=== PATIENT | male | born 2000 | race Caucasian/White ===

== ENCOUNTER 2020-10-30 20:47 | Emergency (ER) | payer OTHER, SELFPAY ==
[~2020-10-30] VITALS: Ht 182.9 cm; Wt 106.6 kg
[2020-10-30 22:10] VITALS: BP_SYST 161
--- NOTE | 2020-10-30 22:10 | NUR ---
Patient triaged and placed in TENT. VSS and patient appears in no acute distress at this time. Accompanied by SELF, awaiting available bed, and MD notified of need for MSE.
--- NOTE | 2020-10-30 22:15 | NUR ---
PT A&O X4 FROM HOME C/O SORE THROAT, EAR POPPING & HEADACHE THAT STARTED EARLIER TODAY. PT TOOK TYLENOL AROUND 12PM AND RELIEVED THE HEADACHE. PT IS EXPERIENCING CHEST TIGHTNESS AND BURNING FROM COUGH. PT HX OF ASTHMA. WILL CONTINUE TO MONITOR.
[2020-10-31 00:21] LABS: INFLUENZA A&B ANTIGEN SCREEN NEGATIVE FOR A & B (NEGATIVE)
--- NOTE | 2020-10-31 01:00 | NUR ---
ER Dr. CASE at bedside examining patient.
[2020-10-31] MEDS ORDERED: predniSONE 20 MG TABLET PO ONE (01:15)
[2020-10-31] MEDS ORDERED: IPRATROPIUM/ALBUTEROL SULFATE 3 ML AMPUL.NEB (DUONEB) INH ONE (01:15)
--- NOTE | 2020-10-31 02:15 | NUR ---
Patient to ER bed 3 to gown for evaluation. Side rails up. Report given to HOUSTON HARRELL.
[2020-10-31] MEDS ORDERED: IPRATROPIUM/ALBUTEROL SULFATE 3 ML AMPUL.NEB (DUONEB) ONE ×2 (02:57→03:02)
--- NOTE | 2020-10-31 03:00 | NUR ---
RESPIRATORY AT BEDSIDE FOR BREATHING TX.
[2020-10-31] MEDS ORDERED: ACETAMINOPHEN 500 MG TABLET ONE (03:42)
[2020-10-31] MEDS ORDERED: ACETAMINOPHEN 500 MG TABLET PO ONE (03:45)
[2020-10-31 03:46] VITALS: BP_SYST 161
--- NOTE | 2020-10-31 03:52 | NUR ---
Patient given written and verbal discharge instructions and verbalizes understanding. ER MD discussed with patient the results and treatment provided. Patient in stable condition. ID arm band removed. Rx of prednisone and albuterol given. Patient educated on pain management and to follow up with PMD. Opportunity for questions provided and answered. Medication side effect fact sheet provided.
== END 2020-10-31 03:52 | disposition home or self-care (01) ==
LOC: SED 20:47
DX: J45.901 Unspecified asthma with (acute) exacerbation (principal); B34.9 Viral infection, unspecified; Z20.828 Contact with and (suspected) exposure to other viral communicable diseases
CPT/HCPCS: 36415; 86710; 87426; 93005; 94640; 99284; J7512